=== PATIENT | male | born 1970 | race Caucasian/White ===

== ENCOUNTER 2017-08-28 20:48 | Emergency (ER) | payer OTHER ==
[~2017-08-28] VITALS: Ht 182.9 cm; Wt 93.0 kg
[2017-08-28 21:55] VITALS: BP 161/107
== END 2017-08-28 21:55 | disposition home or self-care (01) ==
LOC: ER 20:48
DX: S01.81XA Laceration without foreign body of other part of head, initial encounter (principal); W50.0XXA Accidental hit or strike by another person, initial encounter; Y93.67 Activity, basketball; Y92.89 Other specified places as the place of occurrence of the external cause; Y99.8 Other external cause status